=== PATIENT | male | born 1970 ===

== ENCOUNTER 2019-04-03 09:59 | Emergency (ER) | payer SELFPAY ==
[2019-04-03 10:17] VITALS: RESP 16
--- NOTE | 2019-04-03 11:28 | C.PDOC ---
History Of Present Illness 48 year old male presents to ED with complaint of painful urination and itchy, burning bump to his rectal area. Patient states that he experiences a burning sensation when he urinates. He states that he has been to several dermatologists in the past regarding the bumps around his rectum and was told he was fine and was prescribed a cream. He states that the cream provides him with some relief. Patient denies difficulty urinating, hematuria, frequency, fever, and chills. Time Seen by Provider: 04/03/19 10:33 Chief Complaint (Nursing): Male Genitourinary History Per: Patient History/Exam Limitations: no limitations Onset/Duration Of Symptoms: Unknown Current Symptoms Are (Timing): Still Present Quality Of Discomfort: "Pain" Associated Symptoms: Urinary Symptoms (dysuria). denies: Fever, Chills Past Medical History Reviewed: Historical Data, Nursing Documentation, Vital Signs Vital Signs: Last Vital Signs Temp 98 F 04/03/19 10:14 Pulse 61 04/03/19 10:14 Resp 16 04/03/19 10:14 BP 123/78 04/03/19 10:14 Pulse Ox 98 04/03/19 10:14 Primary Care Provider: Sabas Bingham Surg - Medical History PMH: Hyperlipidemia, Hypothyroidism Surgical History: No Surg Hx Family History: States: Unknown Family Hx - Social History Hx Alcohol Use: Yes Hx Substance Use: No - Immunization History Hx Tetanus Toxoid Vaccination: No Hx Influenza Vaccination: No Hx Pneumococcal Vaccination: No Review Of Systems Constitutional: Negative for: Fever, Chills, Weakness Gastrointestinal: Positive for: Rectal Pain. Negative for: Nausea, Vomiting, Abdominal Pain Genitourinary: Positive for: Dysuria. Negative for: Frequency, Hematuria Skin: Positive for: Rash (right side of the neck) Physical Exam - Physical Exam Appears: Well, Non-toxic, No Acute Distress Skin: Normal Color, Warm, Dry, Rash (2 cm area of dry pruritic rash to the right side of the neck) Head: Atraumatic, Normacephalic Eye(s): bilateral: Normal Inspection Oral Mucosa: Moist Neck: Normal ROM, Supple Chest: Symmetrical, No Deformity Cardiovascular: No Friction Rub, No Murmur Respiratory: No Accessory Muscle Use Gastrointestinal/Abdominal: Soft, No Tenderness Rectal: Hemorrhoids (possible small hemorrhoid), No Mass, Other (2 skin colored papules to the 6 o'clock position of the rectum) Back: No CVA Tenderness Extremity: Normal ROM, Capillary Refill (<2 seconds), No Swelling Neurological/Psych: Oriented x3, Normal Speech, Normal Cognition Gait: Steady ED Course And Treatment O2 Sat by Pulse Oximetry: 98 (in RA) Pulse Ox Interpretation: Normal Medical Decision Making Medical Decision Making: Initial Plan: Urine culture Urinalysis Disposition - Disposition Referrals: [facility] [Outside] Darius Ramos MD [Staff Provider] - Disposition: HOME/ ROUTINE Disposition Time: 12:30 Condition: STABLE Additional Instructions: Follow up with the Urologist for further evaluation for prostate exam. Return if worsened. Prescriptions: Ciprofloxacin HCl [Cipro] 500 mg PO BID #20 tab Hydrocortisone 2.5% (Rectal) [Anusol-Hc] 1 appl RC BID #1 tube Triamcinolone 0.1% [Triamcinolone 0.1% Cream] 0.1 gm TP BID PRN #1 tube PRN Reason: Itching / Pruritus Instructions: Urethritis, Hemorrhoids (DC) Forms: [employer] (Burmese) - Clinical Impression Clinical Impression: Hemorrhoids, Urethritis, Dysuria, Eczema - PA / ADMINISTRATIVE JUDGE / Resident Statement MD/DO has reviewed & agrees with the documentation as recorded. (Smiley Mosqeuda) - Scribe Statement The provider has reviewed the documentation as recorded by the Scribe (Smiley Mosqueda) All medical record entries made by the Scribe were at my direction and personally dictated by me. I have reviewed the chart and agree that the record accurately reflects my personal performance of the history, physical exam, medical decision making, and the department course for this patient. I have also personally directed, reviewed, and agree with the discharge instructions and disposition.
[2019-04-03 11:33] LABS: URINE BACTERIA RARE (<OCC); URINE BILIRUBIN NEGATIVE (NEGATIVE); URINE BLOOD NEGATIVE (NEGATIVE); URINE CLARITY Clear (Clear); URINE COLOR Straw (YELLOW); URINE GLUCOSE (UA) NORMAL (Normal); URINE LEUKOCYTE ESTERASE NEG Leu/uL (Negative); URINE PROTEIN NEGATIVE (NEGATIVE); URINE UROBILINOGEN NORMAL mg/dL (0.2-1.0)
[2019-04-03] MEDS ORDERED: cefTRIAXone 250 MG, Lidocaine Hydrochloride 1% 1 ML IM ONE (12:12)
[2019-04-03 12:51] VITALS: BP 128/70; PULSE 66; TEMP 98.4
[2019-04-03 21:46] VITALS: O2SAT 98
== END 2019-04-03 13:00 | disposition home or self-care (01) ==
LOC: C.ER 09:59
DX: N34.2 Other urethritis (principal); K64.9 Unspecified hemorrhoids; L30.9 Dermatitis, unspecified; R30.0 Dysuria
CPT/HCPCS: 81001; 87086; 96372; 99284; J0696